=== PATIENT | female | born 1945 | race Caucasian/White ===

== ENCOUNTER → 2017-07-15 | Outpatient (CLI) | payer OTHER ==
[2017-07-15 09:40] LABS: PLATELET COUNT 325 x10^3mcL (130-400); RED CELL DISTRIBUTION WIDTH 14.2 % (11.5-14.5)
[2017-07-15 10:08] LABS: ALBUMIN 3.7 g/dL (3.4-5.0); BILIRUBIN TOTAL 0.6 mg/dL (0.20-1.00); CALCIUM 9.6 mg/dL (8.5-10.1); CARBON DIOXIDE 27.5 mmol/L (21-32); POTASSIUM SERUM 4.1 mmol/L (3.5-5.1)
[2017-07-15 15:42] LABS: UA SPECIFIC GRAVITY 1.015 (1.005-1.035); microscopic required? YES; urine erythrocyte TRACE (NEGATIVE)
[2017-07-16 09:18] LABS: RHEUMATOID ARTHRITIS FACTOR <10.0 IU/mL (0.0-13.9)
== END | disposition home or self-care (01) ==
LOC: LB 08:40
DX: E11.9 Type 2 diabetes mellitus without complications (principal); I10 Essential (primary) hypertension
CPT/HCPCS: 86431

== ENCOUNTER → 2017-08-30 | Outpatient (CLI) | payer OTHER | END | disposition home or self-care (01) | LOC: LB 10:20 | DX: M32.9 Systemic lupus erythematosus, unspecified (principal) | CPT/HCPCS: 85613 ==

== ENCOUNTER → 2017-12-03 | Outpatient (CLI) | payer OTHER | END | disposition home or self-care (01) | LOC: LB 09:05 | DX: E11.9 Type 2 diabetes mellitus without complications (principal) ==

== ENCOUNTER → 2017-12-11 | Outpatient (CLI) | payer OTHER ==
[2017-12-12 09:03] LABS: VITAMIN D 25-HYDROXY 41.7 ng/mL (30.0-100.0)
== END | disposition home or self-care (01) ==
LOC: LB 09:09
DX: E11.9 Type 2 diabetes mellitus without complications (principal); R76.8 Other specified abnormal immunological findings in serum

== ENCOUNTER 2018-02-27 11:06 | Emergency (ER) | payer OTHER ==
[~2018-02-27] VITALS: Ht 132.1 cm; Wt 47.2 kg
[2018-02-27 12:04] VITALS: BP 137/71
== END 2018-02-27 12:13 | disposition home or self-care (01) ==
LOC: ED 11:06
DX: J20.9 Acute bronchitis, unspecified (principal); E11.9 Type 2 diabetes mellitus without complications
CPT/HCPCS: J7613; J7644; Q0092

== ENCOUNTER → 2018-06-11 | Outpatient (CLI) | payer OTHER | END | disposition home or self-care (01) | LOC: LB 08:09 | DX: E11.9 Type 2 diabetes mellitus without complications (principal) ==

== ENCOUNTER → 2018-10-07 | Outpatient (CLI) | payer OTHER | END | disposition home or self-care (01) | LOC: LB 09:21 | DX: E11.9 Type 2 diabetes mellitus without complications (principal); I10 Essential (primary) hypertension ==

== ENCOUNTER → 2019-02-15 | Outpatient (CLI) | payer OTHER | END | disposition home or self-care (01) | LOC: LB 08:39 | DX: E11.9 Type 2 diabetes mellitus without complications (principal) ==

== ENCOUNTER 2019-04-01 08:14 | Emergency (ER) | payer OTHER | END 2019-04-01 10:22 | disposition home or self-care (01) | LOC: ED 08:14 ==

== ENCOUNTER → 2019-07-22 | Outpatient (CLI) | payer OTHER | END | disposition home or self-care (01) | LOC: LB 07:15 | DX: E11.9 Type 2 diabetes mellitus without complications (principal) ==